=== PATIENT | male | born 1940 | race Caucasian/White ===

== ENCOUNTER 2017-10-30 07:20 | Day surgery (SDC) | payer MEDICARE ==
[2017-10-30] VITALS (11 sets, daily range): BP systolic 92–120; BP diastolic 53–79
[~2017-10-30] VITALS: Ht 167.6 cm; Wt 78.1 kg
[~2017-10-30 07:20] MED LIST: ASPI-1009 PO; ATOR10TA; LIDOcaine 1% (10mg/ml) 5ml syringe SQ ONE; LIDOcaine 1%/PF 5ML 10 MG/ML VIAL SQ ONE; MIDO10TA PO; OMEP20TA5 PO; VIT1TABL50 PO
[2017-10-30] MEDS ORDERED: albumin (human) 25% 100 ML IV solution IV PRN (07:50)
[2017-10-30] MEDS ORDERED: normal saline 1000ml 1,000 ML IV PRN (07:50)
[2017-10-30] MEDS ORDERED: ATOR40TA PO (08:03)
[2017-10-30] MEDS ORDERED: PANT-47 PO (08:03)
[2017-10-30] MEDS ORDERED: AMIO200T57 PO (08:03)
[2017-10-30] MEDS ORDERED: [UNRECOGNIZED DRUG - OTHER] (08:03)
[2017-10-30] MEDS ORDERED: FURO-149 PO (08:03)
[2017-10-30] MEDS ORDERED: MULT-1085 PO (08:03)
[2017-10-30] MEDS ORDERED: ATROPINE (08:03)
[2017-10-30] MEDS ORDERED: COU1T PO (08:03)
[2017-10-30] MEDS ORDERED: IRON POLYSACCHARIDE PO (08:03)
[2017-10-30 08:32] LABS: INR 1.7 INR; PROTHROMBIN TIME 17.4 SECONDS (9.0-12.0)
[2017-10-30 10:17] LABS: BASOPHILS,BODY FLUID 1 %; BFAPPEAR CLOUDY; BFCOLOR YELLOW; BFVOLUME 50 ML; LYMPHOCYTES,BODY FLUID 33 %; MONOCYTES,BODY FLUID 62 %; NEUTROPHILS,BODY FLUID 4 %
[2017-10-30 10:18] LABS: BF RBC COUNT 3100 /CU MM
[2017-10-30 10:20] LABS: AMYLASE,BODY FLUID 30 U/L; BF WBC COUNT 130 /CU MM (0-1000); LDH,BODY FLUID 144 U/L; TOTAL PROTEIN,BODY FLUID 3.3 G/DL
== END 2017-10-30 10:20 | disposition home or self-care (01) ==
LOC: SSTAY O 07:20
PROVIDERS: ATTEND Radiology Diagnostic Radiology
DX: R18.8 Other ascites (principal); N18.4 Chronic kidney disease, stage 4 (severe); I25.10 Atherosclerotic heart disease of native coronary artery without angina pectoris; K21.9 Gastro-esophageal reflux disease without esophagitis; Z95.5 Presence of coronary angioplasty implant and graft; Z86.74 Personal history of sudden cardiac arrest; Z95.1 Presence of aortocoronary bypass graft; Z87.891 Personal history of nicotine dependence; Z87.11 Personal history of peptic ulcer disease; Z96.652 Presence of left artificial knee joint; Z92.21 Personal history of antineoplastic chemotherapy; Z88.2 Allergy status to sulfonamides; Z88.6 Allergy status to analgesic agent; Z88.5 Allergy status to narcotic agent; Z79.01 Long term (current) use of anticoagulants; Z79.899 Other long term (current) drug therapy; Z98.890 Other specified postprocedural states; Z88.8 Allergy status to other drugs, medicaments and biological substances
CPT/HCPCS: 36415; 49083; 82150; 83615; 84157; 85610; 87015; 87070; 87102; 87116; 87206; 89051; J2001; J7030; P9047; 88108; 88305

== ENCOUNTER 2017-12-03 07:19 | Day surgery (SDC) | payer MEDICARE ==
[~2017-12-03] VITALS: Ht 167.6 cm; Wt 76.8 kg
[~2017-12-03 07:19] MED LIST changes: +AMIO200T54 PO; -ASPI-1009 PO; -ATOR10TA; +ATOR40TA PO; +ATROPINE; +COU1T PO; +FURO-149 PO; +IRON POLYSACCHARIDE PO; -LIDOcaine 1% (10mg/ml) 5ml syringe SQ ONE; -MIDO10TA PO; +MULT-1085 PO; -OMEP20TA5 PO; +PANT-47 PO; -VIT1TABL50 PO; +[UNRECOGNIZED DRUG - OTHER]
[2017-12-03] MEDS ORDERED: normal saline 1000ml 1,000 ML IV PRN (08:00)
[2017-12-03] MEDS ORDERED: albumin (human) 25% 100 ML IV solution IV PRN (08:00)
[2017-12-03 08:43] VITALS: BP 115/62
[2017-12-03 08:49] LABS: PARTIAL THROMBOPLASTIN TIME 49 SECONDS (22-32); PROTHROMBIN TIME 42.2 SECONDS (9.0-12.0)
[2017-12-03 09:00] LABS: INR 4.3 INR
== END 2017-12-03 09:25 | disposition home or self-care (01) ==
LOC: SSTAY O 07:19
PROVIDERS: ATTEND Radiology Diagnostic Radiology
DX: R18.8 Other ascites (principal); Z53.8 Procedure and treatment not carried out for other reasons; I25.2 Old myocardial infarction; I25.810 Atherosclerosis of coronary artery bypass graft(s) without angina pectoris; K21.9 Gastro-esophageal reflux disease without esophagitis; N18.4 Chronic kidney disease, stage 4 (severe); Z95.5 Presence of coronary angioplasty implant and graft; Z95.1 Presence of aortocoronary bypass graft; Z87.11 Personal history of peptic ulcer disease; Z96.652 Presence of left artificial knee joint; Z92.21 Personal history of antineoplastic chemotherapy; Z86.74 Personal history of sudden cardiac arrest; Z87.891 Personal history of nicotine dependence; Z79.01 Long term (current) use of anticoagulants; Z88.5 Allergy status to narcotic agent; Z88.2 Allergy status to sulfonamides; Z88.6 Allergy status to analgesic agent; Z88.8 Allergy status to other drugs, medicaments and biological substances; Z79.899 Other long term (current) drug therapy; Z98.890 Other specified postprocedural states
CPT/HCPCS: 36415; 85610; 85730; A6257; J2001; J7030

== ENCOUNTER 2017-12-07 08:27 | Day surgery (SDC) | payer MEDICARE ==
[2017-12-07 09:14] VITALS: BP 101/56
[2017-12-07 09:14] LABS: INR 2.7 INR; PROTHROMBIN TIME 27.3 SECONDS (9.0-12.0)
== END 2017-12-07 09:30 | disposition home or self-care (01) ==
LOC: SSTAY O 08:27
PROVIDERS: ATTEND Radiology Diagnostic Radiology
DX: R18.8 Other ascites (principal); Z53.8 Procedure and treatment not carried out for other reasons; I25.810 Atherosclerosis of coronary artery bypass graft(s) without angina pectoris; K21.9 Gastro-esophageal reflux disease without esophagitis; I25.2 Old myocardial infarction; N18.4 Chronic kidney disease, stage 4 (severe); Z95.1 Presence of aortocoronary bypass graft; Z79.01 Long term (current) use of anticoagulants; Z95.5 Presence of coronary angioplasty implant and graft; Z86.74 Personal history of sudden cardiac arrest; Z87.891 Personal history of nicotine dependence; Z87.11 Personal history of peptic ulcer disease; Z96.652 Presence of left artificial knee joint; Z92.21 Personal history of antineoplastic chemotherapy; Z88.2 Allergy status to sulfonamides; Z88.6 Allergy status to analgesic agent; Z88.5 Allergy status to narcotic agent; Z88.8 Allergy status to other drugs, medicaments and biological substances; Z98.890 Other specified postprocedural states; Z79.899 Other long term (current) drug therapy; Z82.49 Family history of ischemic heart disease and other diseases of the circulatory system; Z83.49 Family history of other endocrine, nutritional and metabolic diseases
CPT/HCPCS: 36415; 85610; J2001

== ENCOUNTER 2017-12-09 08:15 | Day surgery (SDC) | payer MEDICARE ==
[~2017-12-09] VITALS: Ht 167.6 cm; Wt 75.8 kg
[~2017-12-09 08:15] MED LIST changes: -ATROPINE; -LIDOcaine 1%/PF 5ML 10 MG/ML VIAL SQ ONE; -[UNRECOGNIZED DRUG - OTHER]
[2017-12-09 08:35] VITALS: BP 109/64
[2017-12-09] MEDS ORDERED: CALC0.2536 PO (08:39)
[2017-12-09] MEDS ORDERED: normal saline 1000ml 1,000 ML IV PRN (08:50)
[2017-12-09] MEDS ORDERED: albumin (human) 25% 100 ML IV solution IV PRN (08:50)
[2017-12-09 08:54] LABS: PROTHROMBIN TIME 20.1 SECONDS (9.0-12.0)
[2017-12-09] MEDS ORDERED: LIDOcaine 1%/PF 5ML 10 MG/ML VIAL SQ ONE (09:00)
[2017-12-09 09:31] VITALS: BP 109/61
[2017-12-09 09:45] VITALS: BP 64/61
[2017-12-09 10:00] VITALS: BP 99/62
[2017-12-09 10:15] VITALS: BP 102/65
== END 2017-12-09 10:55 | disposition home or self-care (01) ==
LOC: SSTAY O 08:15
PROVIDERS: ATTEND Radiology Vascular & Interventional Radiology
DX: R18.8 Other ascites (principal); E78.5 Hyperlipidemia, unspecified; I25.810 Atherosclerosis of coronary artery bypass graft(s) without angina pectoris; I25.2 Old myocardial infarction; K21.9 Gastro-esophageal reflux disease without esophagitis; N18.3 Chronic kidney disease, stage 3 (moderate); Z95.1 Presence of aortocoronary bypass graft; Z79.01 Long term (current) use of anticoagulants; Z95.5 Presence of coronary angioplasty implant and graft; Z87.891 Personal history of nicotine dependence; Z87.11 Personal history of peptic ulcer disease; Z92.21 Personal history of antineoplastic chemotherapy; Z86.74 Personal history of sudden cardiac arrest; Z96.652 Presence of left artificial knee joint; Z98.41 Cataract extraction status, right eye; Z98.42 Cataract extraction status, left eye; Z88.2 Allergy status to sulfonamides; Z88.5 Allergy status to narcotic agent; Z88.6 Allergy status to analgesic agent; Z98.890 Other specified postprocedural states; Z79.899 Other long term (current) drug therapy; Z88.8 Allergy status to other drugs, medicaments and biological substances; Z82.49 Family history of ischemic heart disease and other diseases of the circulatory system; Z83.49 Family history of other endocrine, nutritional and metabolic diseases
CPT/HCPCS: 36415; 49083; 85610; A6257; J2001; J7030; P9047

== ENCOUNTER 2017-12-29 07:19 | Day surgery (SDC) | payer MEDICARE ==
[2017-12-29] VITALS (8 sets, daily range): BP systolic 108–125; BP diastolic 71–79
[~2017-12-29 07:19] MED LIST changes: +CALC0.2536 PO
[2017-12-29] MEDS ORDERED: normal saline 1000ml 1,000 ML IV SCH (07:50)
[2017-12-29] MEDS ORDERED: albumin (human) 25% 100 ML IV solution IV PRN (07:50)
[2017-12-29 08:04] LABS: INR 1.4 INR; PROTHROMBIN TIME 13.9 SECONDS (9.0-12.0)
[2017-12-29] MEDS ORDERED: LIDOcaine 1%/PF 5ML 10 MG/ML VIAL SQ ONE (08:30)
== END 2017-12-29 10:20 | disposition home or self-care (01) ==
LOC: SSTAY O 07:19
PROVIDERS: ATTEND Radiology Vascular & Interventional Radiology
DX: R18.8 Other ascites (principal); E78.5 Hyperlipidemia, unspecified; F10.21 Alcohol dependence, in remission; I25.810 Atherosclerosis of coronary artery bypass graft(s) without angina pectoris; K21.9 Gastro-esophageal reflux disease without esophagitis; N18.3 Chronic kidney disease, stage 3 (moderate); Z87.11 Personal history of peptic ulcer disease; Z92.21 Personal history of antineoplastic chemotherapy; Z95.1 Presence of aortocoronary bypass graft; Z95.5 Presence of coronary angioplasty implant and graft; Z86.74 Personal history of sudden cardiac arrest; Z87.891 Personal history of nicotine dependence; Z98.41 Cataract extraction status, right eye; Z98.42 Cataract extraction status, left eye; Z88.2 Allergy status to sulfonamides; Z88.6 Allergy status to analgesic agent; Z88.5 Allergy status to narcotic agent; Z96.652 Presence of left artificial knee joint; Z79.01 Long term (current) use of anticoagulants; Z88.8 Allergy status to other drugs, medicaments and biological substances; Z98.890 Other specified postprocedural states; Z79.899 Other long term (current) drug therapy; Z82.49 Family history of ischemic heart disease and other diseases of the circulatory system; Z83.49 Family history of other endocrine, nutritional and metabolic diseases
CPT/HCPCS: 36415; 49083; 85610; A6257; J2001; J7030

== ENCOUNTER 2018-01-15 07:10 | Day surgery (SDC) | payer MEDICARE ==
[~2018-01-15] VITALS: Ht 167.6 cm; Wt 77.0 kg
[~2018-01-15 07:10] MED LIST changes: +LIDOcaine 1% (10mg/ml)w/preservative injection 20ml MDV SQ ONE
[2018-01-15] MEDS ORDERED: albumin (human) 25% 100 ML IV solution IV PRN (07:40)
[2018-01-15] MEDS ORDERED: normal saline 1000ml 1,000 ML IV PRN (07:40)
[2018-01-15 07:53] VITALS: BP 116/65
[2018-01-15 08:45] VITALS: BP 105/67
[2018-01-15 08:53] VITALS: BP 125/65
[2018-01-15 09:00] VITALS: BP 104/58
[2018-01-15 09:08] VITALS: BP 98/57
[2018-01-15 09:10] VITALS: BP 98/65
== END 2018-01-15 09:20 | disposition home or self-care (01) ==
LOC: SSTAY O 07:10
PROVIDERS: ATTEND Radiology Vascular & Interventional Radiology
DX: R18.8 Other ascites (principal); I25.10 Atherosclerotic heart disease of native coronary artery without angina pectoris; E78.5 Hyperlipidemia, unspecified; Z98.890 Other specified postprocedural states; Z98.49 Cataract extraction status, unspecified eye; Z96.652 Presence of left artificial knee joint; Z88.2 Allergy status to sulfonamides; Z88.5 Allergy status to narcotic agent; Z88.8 Allergy status to other drugs, medicaments and biological substances; Z79.899 Other long term (current) drug therapy
CPT/HCPCS: 49083; J2001; J7030

== ENCOUNTER 2018-02-01 08:04 | Day surgery (SDC) | payer MEDICARE ==
[~2018-02-01] VITALS: Ht 167.6 cm; Wt 76.0 kg
[~2018-02-01 08:04] MED LIST changes: -PANT-47 PO
[2018-02-01] MEDS ORDERED: normal saline 1000ml 1,000 ML IV PRN (08:30)
[2018-02-01] MEDS ORDERED: albumin (human) 25% 100 ML IV solution IV PRN (08:30)
[2018-02-01] MEDS ORDERED: keflex PO (08:31)
[2018-02-01 08:45] VITALS: BP 104/57
[2018-02-01 08:50] VITALS: BP 104/57
[2018-02-01 09:00] VITALS: BP 95/47
[2018-02-01 09:15] VITALS: BP 85/47
[2018-02-01 09:26] VITALS: BP 95/58
== END 2018-02-01 09:34 | disposition home or self-care (01) ==
LOC: SSTAY O 08:04
PROVIDERS: ATTEND Radiology Diagnostic Radiology
DX: R18.8 Other ascites (principal); K76.9 Liver disease, unspecified; I25.10 Atherosclerotic heart disease of native coronary artery without angina pectoris; E78.5 Hyperlipidemia, unspecified; Z87.891 Personal history of nicotine dependence; Z95.1 Presence of aortocoronary bypass graft; Z88.2 Allergy status to sulfonamides; Z88.8 Allergy status to other drugs, medicaments and biological substances; Z79.899 Other long term (current) drug therapy; Z98.890 Other specified postprocedural states
CPT/HCPCS: 49083; J2001; J7030

== ENCOUNTER 2018-04-08 06:00 | Day surgery (SDC) | payer OTHER, MEDICARE ==
[~2018-04-08] VITALS: Ht 167.6 cm; Wt 58.0 kg
[2018-04-08] VITALS (15 sets, daily range): BP systolic 95–110; BP diastolic 44–84
[~2018-04-08 06:00] MED LIST changes: -LIDOcaine 1% (10mg/ml)w/preservative injection 20ml MDV SQ ONE; +keflex PO
[2018-04-08] MEDS ORDERED: LINE600T36 PO (06:44)
[2018-04-08] MEDS ORDERED: MIDO5TAB PO (06:44)
[2018-04-08] MEDS ORDERED: METO5TAB98 PO (06:44)
[2018-04-08] MEDS ORDERED: SEVE800T8 PO (06:44)
[2018-04-08] MEDS ORDERED: DOBU500I5 (06:44)
[2018-04-08] MEDS ORDERED: LEVO50TA8 PO (06:44)
[2018-04-08] MEDS ORDERED: ASPI-1265 PO (06:44)
[2018-04-08] MEDS ORDERED: PANT-47 PO (06:44)
[2018-04-08 06:58] LABS: BASOPHILS % (AUTO) 0.7 % (0-1); EOSINOPHILS # (AUTO) 0.3 X10'3 (0-0.9); EOSINOPHILS % (AUTO) 5.3 % (0-6); HEMATOCRIT 24.2 % (42.0-52.0); HEMOGLOBIN 7.9 g/dl (14.0-17.9); LYMPHOCYTES # (AUTO) 0.6 X10'3 (1.1-4.8); LYMPHOCYTES % (AUTO) 12.5 % (21-51); MEAN CORPUSCULAR HEMOGLOBIN 30.6 PG (27.0-31.0); MEAN CORPUSCULAR HGB CONC 32.8 % (33.0-36.5); MEAN CORPUSCULAR VOLUME 93.4 FL (78-98); MEAN PLATELET VOLUME 6.9 FL (7.4-10.4); MONOCYTES # (AUTO) 0.3 X10'3 (0-0.9); MONOCYTES % (AUTO) 5.1 % (2-12); NEUTROPHILS # (AUTO) 3.8 X10'3 (1.8-7.7); NEUTROPHILS % (AUTO) 76.4 % (42-75); PLATELET COUNT 131 X10'3 (140-440); RED BLOOD COUNT 2.59 X10'6 (4.70-6.10); RED CELL DISTRIBUTION WIDTH 22.9 % (11.5-14.5)
[2018-04-08 07:14] LABS: ALBUMIN 2.9 G/DL (3.4-5.0); ANION GAP 8 (8-16); BLOOD UREA NITROGEN 33 MG/DL (7-18); CALCIUM 8.2 MG/DL (8.5-10.1); CHLORIDE 96 MMOL/L (99-107); CREATININE 2.53 MG/DL (0.60-1.10); GLUCOSE 79 MG/DL (70-104); POTASSIUM 5.2 MMOL/L (3.5-5.1); SODIUM 128 MMOL/L (135-145); TOTAL CARBON DIOXIDE 24.1 MMOL/L (24-32); eGFR 25 ML/MIN
[2018-04-08] MEDS ORDERED: normal saline 1000ml 1,000 ML IV SCH (07:40)
[2018-04-08] MEDS ORDERED: sod bicarbonate 150mEq in D5W 1,150 ML IV ONE (07:40)
[2018-04-08] MEDS ORDERED: diphenhydrAMINE 25mg capsule PO PRN (07:40)
[2018-04-08] MEDS ORDERED: lidocaine 1%/epinephrine 1:100,000 injection 50ml vial ONE (07:50)
[2018-04-08] MEDS ORDERED: iohexol 350 MG/ML 50ML vial IV ONE ×2 (07:50→09:12)
[2018-04-08] MEDS ORDERED: DOBUTamine-DoBUTrex 500mg/D5W 250 ML IV SCH (07:50)
[2018-04-08] MEDS ORDERED: ceFAZolin 1GM/D5W- ADD-VANTAGE 50 ML IV ONE (08:10)
[2018-04-08] MEDS ORDERED: fentaNYL/PF 50MCG/1 ML 2ML syringe ONE (08:11)
[2018-04-08] MEDS ORDERED: vancomycin 1,000mg inj ONE (08:11)
[2018-04-08] MEDS ORDERED: midazolam 2 mg/2 ml injection ONE ×2 (08:11→09:56)
[2018-04-08 08:22] LABS: INR 3.3 INR; PROTHROMBIN TIME 30.3 SECONDS (9.0-12.0)
== END 2018-04-08 15:27 | disposition home or self-care (01) ==
LOC: SSTAY O 06:00
PROVIDERS: ATTEND Internal Medicine Cardiovascular Disease
DX: I42.0 Dilated cardiomyopathy (principal); I48.3 Typical atrial flutter; E85.89 Other amyloidosis; I48.91 Unspecified atrial fibrillation; I45.2 Bifascicular block; I50.9 Heart failure, unspecified; K21.9 Gastro-esophageal reflux disease without esophagitis; I25.810 Atherosclerosis of coronary artery bypass graft(s) without angina pectoris; E03.9 Hypothyroidism, unspecified; N18.3 Chronic kidney disease, stage 3 (moderate); H91.8X3 Other specified hearing loss, bilateral; K70.30 Alcoholic cirrhosis of liver without ascites; Z86.74 Personal history of sudden cardiac arrest; Z87.11 Personal history of peptic ulcer disease; Z96.652 Presence of left artificial knee joint; Z79.01 Long term (current) use of anticoagulants; Z95.1 Presence of aortocoronary bypass graft; Z88.6 Allergy status to analgesic agent; Z79.82 Long term (current) use of aspirin; Z87.891 Personal history of nicotine dependence; Z88.2 Allergy status to sulfonamides; Z95.5 Presence of coronary angioplasty implant and graft; Z98.41 Cataract extraction status, right eye; Z98.42 Cataract extraction status, left eye; Z88.5 Allergy status to narcotic agent; Z88.8 Allergy status to other drugs, medicaments and biological substances; Z79.899 Other long term (current) drug therapy; Z98.890 Other specified postprocedural states; Z82.49 Family history of ischemic heart disease and other diseases of the circulatory system; Z83.49 Family history of other endocrine, nutritional and metabolic diseases
CPT/HCPCS: 33208; 33225; 36415; 80048; 83735; 85025; 85610; 92960; 93005; 99152; 99153; C1887; C1898; C1900; C2621; J0690; J1250; J2250; J3010; J3370; J3490; Q0163; Q9967; 33249; A4565; A4620; C1769; C1882; C1894; C1895